=== PATIENT | male | born 1970 | race African-American/Black ===

== ENCOUNTER 2021-02-13 16:53 | Observation (INO) | payer OTHER ==
[~2021-02-13] VITALS: Ht 175.3 cm; Wt 104.6 kg
[2021-02-13 17:23] LABS: HEMATOCRIT 45.2 % (42.0-52.0); HEMOGLOBIN 15.6 g/dl (13.5-18.0); MEAN CELL VOLUME 84 fl (80.0-100.0); MEAN CORPUSCULAR HEMOGLOBIN 29 pg (27.0-31.0); MEAN CORPUSCULAR HGB CONC 35 g/dl (33.0-37.0); MEAN PLATELET VOLUME 9.8 fl (7.4-10.4); PLATELET COUNT 295 K/mm3 (130-400); RED BLOOD COUNT 5.38 M/mm3 (4.20-5.60); REDCELL DISTRIBUTION WIDTH-CV 12.9 % (11.5-14.5)
[2021-02-13 17:36] LABS: ALBUMIN 4.8 gm/dL (3.5-5.0); BILIRUBIN,TOTAL 1.6 mg/dL (0.0-1.0); CALCIUM 9.6 mg/dL (8.4-10.2); CREATININE, serum 1.1 (0.66-1.25); POTASSIUM 3.3 mmol/L (3.4-5.0); TOTAL PROTEIN 8.9 gm/dL (6.4-8.2)
[2021-02-13 17:40] LABS: EOSINOPHIL 2 % (0-4); LYMPHOCYTE 63 % (20.0-51.0); NEUTROPHILS 26 % (42.0-75.2); PLATELET ESTIMATE NORMAL (NORMAL)
[2021-02-13 17:48] LABS: TROPONIN-I 0.016 ng/mL (0.000-0.035)
[2021-02-13] MEDS ORDERED: GLUCOPHAGE1000 MG PO (19:48)
[2021-02-13] MEDS ORDERED: COZAAR100 MG (19:49)
[2021-02-13] MEDS ORDERED: NORVASC 10MG10 MG PO (19:50)
--- NOTE | 2021-02-13 20:15 | NUR ---
PT ARRIVES TO ROOM VIA CART. IS ALERT AND ORIENTED X4. HAS NITRO PASTE TO RIGHT CHEST. HAS IVF INFUSING TO RIGHT AC WITHOUT REDNESS OR SWELLING. RATES PAIN TO EPIGASTRIC AREA 3/10. DOES NOT WANT ANYTHING TO EAT AT THIS TIME.
[2021-02-13 20:20] VITALS: BP 125/72; PULSE 63; TEMP 98.4
[2021-02-13 21:16] LABS: CHOLESTEROL RISK RATIO 3.9
[2021-02-13 23:46] VITALS: BP 108/62; PULSE 60; TEMP 97.5
[2021-02-14] VITALS (13 sets, daily range): BP systolic 112–166; BP diastolic 61–91; PULSE 56–107; TEMP 97.5–99
--- NOTE | 2021-02-14 01:20 | NUR ---
PT TAKES LAST DOSE OF ORAL POTASSIUM. DID ADVISE PT OF NPO STATUS FOR AM DEANAISCAN. VERBALIZED UNDERSTANDING.
--- NOTE | 2021-02-14 05:00 | NUR ---
PT RESTING WELL, OFFERS NO CONCERNS FOR PAIN.
--- NOTE | 2021-02-14 06:07 | NUR ---
NOTIFIED DR GODOY OF NEW CONSULT.
--- NOTE | 2021-02-14 06:33 | NUR ---
DR MATA NOTIFIED OF NEW CONSULT.
[2021-02-14 07:04] LABS: BLOOD UREA NITROGEN 13 mg/dL (9-20)
[2021-02-14 07:34] LABS: BASO % 0.4 % (0.0-2.0); EOS # 0.1 (0.0-0.7); EOS % 0.8 % (0-4.0); GRAN # 5.2 (1.4-6.5); GRAN % 55.3 % (42.2-75.2); HEMATOCRIT 39.8 % (42.0-52.0); LYMPH # 3.2 (1.2-3.4); LYMPH % 34.1 % (20.0-51.0); MEAN CELL VOLUME 87 fl (80.0-100.0); MEAN CORPUSCULAR HEMOGLOBIN 30 pg (27.0-31.0); MEAN CORPUSCULAR HGB CONC 34 g/dl (33.0-37.0); MONO # 0.9 (0.1-0.6); PLATELET COUNT 206 K/mm3 (130-400); RED BLOOD COUNT 4.57 M/mm3 (4.20-5.60)
[2021-02-14 08:08] LABS: ANION GAP 8 mmol/L (7-16); CALCIUM 9.3 mg/dL (8.4-10.2); CARBON DIOXIDE 24 mmol/L (22-30); CHLORIDE 106 mmol/L (98-107); CREATININE, serum 0.98 (0.66-1.25); GLUCOSE 79 mg/dL (74-106); POTASSIUM 3.8 mmol/L (3.4-5.0); SODIUM 137 mmol/L (137-145)
--- NOTE | 2021-02-14 08:45 | NUR ---
Shift assessment complete. Lying in bed w/eyes closed, rouses easily to voice. A&Ox4. Heart RRR. Lungs CTA. Reports mild epigastric pain, declines medication at this time. Denies SOA or dizziness. Continuing to monitor.
[2021-02-14 09:10] LABS: TROPONIN-I < 0.012 ng/mL (0.000-0.035)
[2021-02-14 09:29] LABS: HEMOGLOBIN 13.5 g/dl (13.5-18.0)
--- NOTE | 2021-02-14 13:42 | NUR ---
Domestic Violence Advocate met with the patient to complete intake. The patient lives in [place] with his Cherry. The patient uses a CPAP (supplies from [place]) and is independent. The patient receives medical care and medications from the [facility]. The patient does not have advanced directives in the EMR. He reports he has a Living Will but not a DPOA-HC. He was not interested in DPOA-HC form. The patient plans to return home with Cherry. She will provide transportation. *Discharge disposition: Home with spouse
[2021-02-14] MEDS ORDERED: PROTONIX 40MG T40 MG PO (15:33)
--- NOTE | 2021-02-14 16:30 | NUR ---
Discharge instructions discussed w/pt and , all questions answered. IV to right forearm removed w/tip intact. Pt and family escorted out to visitor entrance w/all belongings.
== END 2021-02-14 16:30 | disposition home or self-care (01) ==
LOC: COL.ER 16:53 → MEDICAL 18:35
PROVIDERS: Emergency Medicine; Student in an Organized Health Care Education/Training Program; ADMIT Internal Medicine
DX: K21.00 Gastro-esophageal reflux disease with esophagitis, without bleeding (principal); K29.30 Chronic superficial gastritis without bleeding; R07.89 Other chest pain; K82.8 Other specified diseases of gallbladder; E87.6 Hypokalemia; D72.829 Elevated white blood cell count, unspecified; I10 Essential (primary) hypertension; E11.9 Type 2 diabetes mellitus without complications; K85.90 Acute pancreatitis without necrosis or infection, unspecified; M19.90 Unspecified osteoarthritis, unspecified site; G89.29 Other chronic pain; M54.9 Dorsalgia, unspecified; G47.33 Obstructive sleep apnea (adult) (pediatric); Z99.89 Dependence on other enabling machines and devices; Z90.89 Acquired absence of other organs; Z79.84 Long term (current) use of oral hypoglycemic drugs; Z79.899 Other long term (current) drug therapy
CPT/HCPCS: 99223-AI; 99239; A9500; C9113; G0378; J2060; J2270; J2704; J2785; J3480; J7030; Q9967

== ENCOUNTER → 2021-04-25 | Outpatient (CLI) | payer OTHER ==
[~2021-04-25] MED LIST: COZAAR100 MG; GLUCOPHAGE1000 MG PO; NORVASC 10MG10 MG PO; PROTONIX 40MG T40 MG PO
== END ==
LOC: COL.RAD 06:20
DX: K82.9 Disease of gallbladder, unspecified (principal)
CPT/HCPCS: A9537